=== PATIENT | female | born 1935 | race Caucasian/White ===

== ENCOUNTER 2021-12-31 19:30 | Emergency (ER) | payer MEDICARE, SELFPAY ==
[2021-12-31] VITALS (20 sets, daily range): BP systolic 178–225; BP diastolic 85–109; PULSE 69–77; RESP 16–44; O2SAT 88–98
--- NOTE | 2021-12-31 19:33 | ED_ITS ---
HPI - Neuro Symptoms/Deficit General Chief Complaint: Extremity Problem,Nontraumatic Stated Complaint: R leg pain/numbness Time Seen by Provider: 12/31/21 19:32 History of Present Illness HPI Narrative: 86-year-old female former smoker with history of atrial flutter, chronic CHF with EF 30%, prior GI pleed, prior stroke workup and hypertension presents by EMS for evaluation of severe right leg pain, numbness and tingling. SHe has a very unclear timeline, but states she probably noticed some symptoms this morning. She sat down in a chair at her computer at about 330p and noticed her symptoms at 1800. She states she had something similar few months ago and had a workup at an outside facility, we are attempting to obtain records. She has pain in her right posterior hip and many various areas of her leg. She states that she was largely in her baseline and had sat down at her computer for least an hour to an upon standing noticed the pain and tingling in her leg at 6:00 p.m.. She was hoping that going for a walk might workout a ?kink? and when her symptoms did not improve she called EMS. She denies any headache or blurred vision. She denies any difficulty with speech, dizziness or lightheadedness. She denies any upper extremity numbness, tingling or weakness. She denies any left leg numbness, tingling or weakness. She had a very similar presentation in the end of September at an outside facility in which case she was found to be hypertensive with right posterior hip pain, right leg numbness and tingling and negative imaging Related Data Previous Rx's Medication Instructions Recorded hydrocodone 5 mg-acetaminophen 325 1 tab PO Q4-6H PRN pain #10 tabs 01/01/22 mg tablet methylprednisolone 4 mg tablets in See Rx Instructions PO .COMPLEX 01/01/22 a dose pack (Medrol (Alex)) #21 ea Allergies Allergy/AdvReac Type Severity Reaction Status Date / Time carvedilol Allergy Verified 12/31/21 21:19 cephalexin Allergy Verified 12/31/21 21:19 doxycycline Allergy Verified 12/31/21 21:19 ibuprofen Allergy Verified 12/31/21 19:52 spironolactone Allergy Verified 12/31/21 21:19 Sulfa (Sulfonamide Allergy Verified 12/31/21 19:52 Antibiotics) Review of Systems Review of Systems Narrative: GENERAL: Denies chills, fatigue, malaise, fever, sweats. HEENT: Denies sinus pain, ear pain, sore throat, difficulty swallowing, dizziness. RESPIRATORY: Denies dyspnea, cough, wheezing, hemoptysis, sputum. CARDIOVASCULAR: Denies chest pain, palpitations, orthopnea, edema, GASTROINTESTINAL: Denies nausea, vomiting, abdominal pain, diarrhea, constipati on, melena. : Denies dysuria, frequency, incontinence, hematuria, urinary retention. MUSCULOSKELETAL: See HPI SKIN: Denies rash, skin lesions, or other NEUROLOGIC: See HPI PSYCHIATRIC: No concerning psychosocial issues. 12 point review of systems is negative except for those stated above Patient History Social History Smoking Status: Never smoker Exam Narrative Exam Narrative: GENERAL: [86] year old patient appears stated age. Well-developed patient, in mild distress. GCS 15 HEAD: Atraumatic. Normocephalic. EYES: Pupils equal round and reactive. Extraocular motions intact. No scleral icterus. No injection or drainage. ENT: Nose without bleeding, purulent drainage. Throat without erythema, tonsillar hypertrophy or exudate. Airway patent. NECK: Trachea midline. Non tender CARDIOVASCULAR: Regular rate and rhythm without murmurs, gallops, or rubs. RESPIRATORY: Clear to auscultation. Breath sounds equal bilaterally. No wheezes, rales, or rhonchi. GASTROINTESTINAL: Abdomen soft, non-tender, nondistended. EXTREMITIES: No edema or joint tenderness. BACK: Nontender without deformity or crepitance. No flank tenderness. NEURO: AOx3. Cranial nerves 2-12 grossly intact SKIN: No rash or erythema of visible areas Initial Vital Signs Initial Vital Signs: Vital Signs Pulse Rate 70 12/31/21 19:30 Respiratory Rate 16 12/31/21 19:30 Blood Pressure 223/109 H 12/31/21 19:30 Pulse Oximetry 97 12/31/21 19:30 Oxygen Delivery Method 12/31/21 19:30 Scores NIH Stroke Scale Level of Conciousness: Alert, keenly responsive Ask month/age: Answers both questions correctly. Open/close eyes, close hand: Performs both tasks correctly Best gaze horizontal: Normal Visual loyd: No visual loss Facial palsy: Normal symetrical movement Left arm drift: No drift for full 10 sec Right arm drift: No drift for full 10 sec Left leg drift: No drift for full 5 sec Right leg drift: No drift for full 5 sec Limb ataxia: Absent Sensory on face/arms/legs: Mild to moderate sensory loss, can tell touch Best language: No aphasia, normal Dysarthria: Normal Extinction or inattention: No abnormality Total NIH Stroke scale score: 1 Course Orders Ordered: ED Orders 12/31/21 19:33 CT Stroke Stat US periph venous low extrem rt Stat 12/31/21 19:34 CT angio head and neck Stat 12/31/21 19:48 BNP [NT-proBNP (BNP-Adult 18+)] Stat Complete Blood Count AUTO DIFF Stat Comprehensive Metabolic Panel Stat Procalcitonin Stat Prothrombin Time INR Stat Troponin & CK Cardiac Panel Stat 12/31/21 21:11 Urine Drug Screen, Rapid Stat 12/31/21 21:12 Urine Culture Stat Urine Microscopic Stat 12/31/21 21:25 Chest [XR chest 1V] Stat 12/31/21 21:30 EKG-12 Lead Stat Sodium Chloride (Normal Saline 0.9%) 1,000 mls @ 150 mls/hr IV CONT DREA Last Infusion: 01/01/22 00:33 Dose: 0 mls/hr Documented By: Admin: 12/31/21 20:53 Dose: 150 mls/hr Documented By: MICHAELA Discontinued Medications Hydrocodone Bitart/Acetaminophen (Hydrocodone/Acet 5/325 Tablet) 1 tab PO NOW ONE Stop: 12/31/21 21:45 Last Admin: 12/31/21 22:49 Dose: 1 tab Documented By: DESIRE Dexamethasone (Dexamethasone 10 Mg/Ml Vial) 6 mg IV NOW ONE Stop: 12/31/21 21:43 Last Admin: 12/31/21 22:49 Dose: 6 mg Documented By: DESIRE Furosemide (Furosemide 40 Mg/4 Ml Vial) 40 mg IV NOW ONE Stop: 12/31/21 21:09 Last Admin: 12/31/21 21:21 Dose: 40 mg Documented By: MICHAELA Ceftriaxone Sodium 1,000 mg/ (Sodium Chloride) 100 mls @ 200 mls/hr IV NOW ONE Stop: 12/31/21 21:10 Last Admin: 12/31/21 22:22 Dose: Not Given Documented By: MICHAELA Labetalol HCl (Labetalol 20 Mg/4 Ml Syringe) 10 mg IV NOW ONE Stop: 12/31/21 21:10 Last Admin: 12/31/21 21:23 Dose: 10 mg Documented By: MICHAELA Metoprolol Tartrate (Metoprolol Ir 25 Mg Tablet) 50 mg PO NOW ONE Stop: 12/31/21 21:09 Last Admin: 12/31/21 22:22 Dose: Not Given Documented By: MICHAELA Ondansetron HCl (Ondansetron 4 Mg/2 Ml Inj) 4 mg IV NOW ONE Stop: 12/31/21 21:07 Last Admin: 12/31/21 21:14 Dose: 4 mg Documented By: MICHAELA Pantoprazole Sodium (Pantoprazole 40 Mg Vial) 40 mg IV NOW ONE Stop: 12/31/21 21:07 Last Admin: 12/31/21 21:21 Dose: 40 mg Documented By: MICHAELA Reevaluation(s) Reevaluation #1: BP greatly improved after above stated therapies leg pain greatly improved, she does well with ambulation Consultations Consultation #1: discussed with Stroke. In agreement that not only is patient without symptoms that are likely to be stroke, but timeline is unclear and she is not TPA, nor CODE IR candidate Vital Signs Vital signs: Vital Signs - 8 hr 12/31/21 19:30 12/31/21 20:11 12/31/21 20:30 Pulse Rate 70 69 69 Respiratory Rate 16 17 22 Blood Pressure 223/109 H Pulse Oximetry 97 91 88 L Oxygen Delivery Method Room Air 12/31/21 20:35 12/31/21 20:35 12/31/21 21:03 Pulse Rate 69 Respiratory Rate 23 Blood Pressure 220/100 H Pulse Oximetry 92 95 Oxygen Delivery Method 12/31/21 21:04 12/31/21 21:04 12/31/21 21:24 Pulse Rate 77 72 Respiratory Rate 25 H Blood Pressure 207/94 H Pulse Oximetry 95 96 Oxygen Delivery Method 12/31/21 21:24 12/31/21 21:30 12/31/21 21:30 Pulse Rate 69 Respiratory Rate 19 Blood Pressure 217/98 H 211/99 H Pulse Oximetry 93 Oxygen Delivery Method 12/31/21 23:00 12/31/21 21:33 12/31/21 21:33 Pulse Rate 74 69 Respiratory Rate 24 Blood Pressure 185/89 H 197/85 H Pulse Oximetry 92 Oxygen Delivery Method 12/31/21 21:40 12/31/21 21:40 12/31/21 21:51 Pulse Rate 69 Respiratory Rate 16 Blood Pressure 193/86 H 225/96 H Pulse Oximetry 98 Oxygen Delivery Method 12/31/21 21:51 12/31/21 22:00 12/31/21 22:30 Pulse Rate 69 72 73 Respiratory Rate 35 H 23 27 H Blood Pressure Pulse Oximetry 96 96 Oxygen Delivery Method 12/31/21 22:50 12/31/21 22:50 12/31/21 23:00 Pulse Rate 71 Respiratory Rate 30 H Blood Pressure 193/88 H 185/89 H Pulse Oximetry 96 Oxygen Delivery Method 12/31/21 23:00 12/31/21 23:10 12/31/21 23:10 Pulse Rate 74 69 Respiratory Rate 26 H 21 Blood Pressure 184/87 H Pulse Oximetry 97 97 Oxygen Delivery Method 12/31/21 23:20 12/31/21 23:20 12/31/21 23:30 Pulse Rate 72 Respiratory Rate 34 H Blood Pressure 188/96 H 178/88 H Pulse Oximetry 96 Oxygen Delivery Method 12/31/21 23:30 12/31/21 23:40 12/31/21 23:40 Pulse Rate 70 73 Respiratory Rate 44 H 25 H Blood Pressure 190/96 H Pulse Oximetry 92 96 Oxygen Delivery Method 12/31/21 23:50 12/31/21 23:50 01/01/22 00:00 Pulse Rate 70 Respiratory Rate 24 Blood Pressure 191/95 H 183/86 H Pulse Oximetry 94 Oxygen Delivery Method 01/01/22 00:00 01/01/22 00:10 01/01/22 00:10 Pulse Rate 69 69 Respiratory Rate 24 24 Blood Pressure 185/91 H Pulse Oximetry 96 92 Oxygen Delivery Method 01/01/22 00:20 01/01/22 00:20 Pulse Rate 69 Respiratory Rate 21 Blood Pressure 183/87 H Pulse Oximetry 95 Oxygen Delivery Method MDM - Neuro Symptoms/Deficit Lab Data Result diagrams: 12/31/21 19:48 12/31/21 19:48 Labs: Lab Results 12/31/21 12/31/21 12/31/21 Range/Units 19:48 19:48 19:48 WBC 4.9 (4.5-11.0) X10^3/uL RBC 4.23 (4.0-5.2) X10^6/uL Hgb 13.5 (12.0-16.0) g/dL Hct 39.7 (36-46) % MCV 94.0 (80-100) fL MCH 31.9 (26-34) PG MCHC 33.9 (30-36) % RDW 14.2 (11.6-14.8) % Plt Count 159 (150-400) X10^3/uL Neut % (Auto) 74.2 (50-75) % Lymph % (Auto) 18.4 L (25-40) % [place] % (Auto) 6.0 (3-14) % Eos % (Auto) 1.0 L (2-4) % Baso % (Auto) 0.4 (0-2) % Neut # (Auto) 3600 (7220-5630) /uL Lymph # (Auto) 900 L (5926-0276) /uL [place] # (Auto) 300 (0-900) /uL Eos # (Auto) 100 (0-450) /uL Baso # (Auto) 0 (0-100) /uL PT 10.6 (10.1-12.7) SECONDS INR 1.0 (0.9-1.3) Sodium 142 (137-145) mmol/L Potassium 4.0 (3.4-5.1) mmol/L Chloride 109 H (98-107) mmol/L Carbon Dioxide 21 L (22-32) mmol/L BUN 33 H (7-17) mg/dL Creatinine 0.84 (0.52-1.04) mg/dL Estimated GFR > 60 (>60) mL/min BUN/Creatinine Ratio 39.3 H (6-22) Glucose 165 H (80-110) mg/dL Calcium 9.1 (8.4-10.2) mg/dL Total Bilirubin 0.5 (0.2-1.3) mg/dL AST 74 H (14-36) IU/L ALT 48 H (<35) IU/L Alkaline Phosphatase 91 (38-126) U/L Total Creatine Kinase 74 (30-135) U/L CK-MB (CK-2) TNP CK-MB (CK-2) Rel Index TNP Troponin I 0.013 (0.01-0.034) ng/mL NT-Pro-B Natriuret Pep (<450) pg/mL Total Protein 7.3 (6.3-8.2) g/dL Albumin 4.5 (3.5-5.0) g/dL Globulin 2.8 (1.7-4.1) g/dL Albumin/Globulin Ratio 1.6 (1.0-2.8) Procalcitonin (<0.5) ng/mL Urine RBC (0-5/HPF) Urine WBC (0-5/HPF) Urine Bacteria (None) Ur Culture Indicated? U Opiates 300ng/mL cut (Negative) Ur Oxycodone Screen (Negative) Urine Methadone Screen (Negative) Ur Barbiturates Screen (Negative) U Tricyclic Antidepress (Negative) Ur Phencyclidine Scrn (Negative) Ur Amphetamines Screen (Negative) U Methamphetamines Scrn (Negative) Ur MDMA Scrn (Ecstasy) (Negative) U Benzodiazepines Scrn (Negative) Urine Cocaine Screen (Negative) U Marijuana (THC) Screen (Negative) 12/31/21 12/31/21 12/31/21 Range/Units 19:48 21:11 21:12 WBC (4.5-11.0) X10^3/uL RBC (4.0-5.2) X10^6/uL Hgb (12.0-16.0) g/dL Hct (36-46) % MCV (80-100) fL MCH (26-34) PG MCHC (30-36) % RDW (11.6-14.8) % Plt Count (150-400) X10^3/uL Neut % (Auto) (50-75) % Lymph % (Auto) (25-40) % [place] % (Auto) (3-14) % Eos % (Auto) (2-4) % Baso % (Auto) (0-2) % Neut # (Auto) (4455-4003) /uL Lymph # (Auto) (0226-5477) /uL [place] # (Auto) (0-900) /uL Eos # (Auto) (0-450) /uL Baso # (Auto) (0-100) /uL PT (10.1-12.7) SECONDS INR (0.9-1.3) Sodium (137-145) mmol/L Potassium (3.4-5.1) mmol/L Chloride (98-107) mmol/L Carbon Dioxide (22-32) mmol/L BUN (7-17) mg/dL Creatinine (0.52-1.04) mg/dL Estimated GFR (>60) mL/min BUN/Creatinine Ratio (6-22) Glucose (80-110) mg/dL Calcium (8.4-10.2) mg/dL Total Bilirubin (0.2-1.3) mg/dL AST (14-36) IU/L ALT (<35) IU/L Alkaline Phosphatase (38-126) U/L Total Creatine Kinase (30-135) U/L CK-MB (CK-2) CK-MB (CK-2) Rel Index Troponin I (0.01-0.034) ng/mL NT-Pro-B Natriuret Pep 2540 H (<450) pg/mL Total Protein (6.3-8.2) g/dL Albumin (3.5-5.0) g/dL Globulin (1.7-4.1) g/dL Albumin/Globulin Ratio (1.0-2.8) Procalcitonin 0.06 (<0.5) ng/mL Urine RBC None seen (0-5/HPF) Urine WBC None seen (0-5/HPF) Urine Bacteria None seen (None) Ur Culture Indicated? Specimen cultured U Opiates 300ng/mL cut Negative (Negative) Ur Oxycodone Screen Negative (Negative) Urine Methadone Screen Negative (Negative) Ur Barbiturates Screen Negative (Negative) U Tricyclic Antidepress Negative (Negative) Ur Phencyclidine Scrn Negative (Negative) Ur Amphetamines Screen Negative (Negative) U Methamphetamines Scrn Negative (Negative) Ur MDMA Scrn (Ecstasy) Negative (Negative) U Benzodiazepines Scrn Negative (Negative) Urine Cocaine Screen Negative (Negative) U Marijuana (THC) Screen Negative (Negative) Point of Care Testing Glucose POC 146 Urine Dip Bedside Urine Glucose Negative Bedside Urine Bilirubin - Negative Bedside Urine Ketone +/- 5 Urine Specific [place] 1.025 Bedside Urine pH 5.5 Bedside Urine Protein ++ 100 Bedside Urine Urobilinogen +/- 1mg Bedside Urine Nitrite - Negative Bedside Urine Leukocytes +/- 15 Esterase MDM Narrative Medical decision making narrative: 86-year-old female presents with right low back pain with radiation into her leg with associated numbness and tingling with reassuring imaging in the absence of other neurologic symptoms. Multiple etiologies of back pain considered including; Epidural abscess, cauda equina, mass occupying lesion, and other considered, however she has no red flag findings suggestive of a neurosurgical emergency. She has significantly improved symptoms with above-stated therapies. Stroke was considered though thought to be highly unlikely given her history and physical. We had extensive discussion about the possibility though extremely unlikely of this being stroke, including my conversation with Neurology and sure the opinion that this is much more likely explained by an other diagnosis. She recently had an echo which was unremarkable. Patient given extensive return precautions and questions answered to her apparent satisfaction Discharge Plan Departure Patient Disposition: Home Clinical Impression: Acute lumbar radiculopathy, Hypertension Instructions: DI for Lumbar Radiculopathy Activity Restrictions/Additional Instructions: *You have been diagnosed with [acute right-sided lumbar radiculopathy.] *What to do: *Please continue to take your regular medications as directed. [ x] New medication prescriptions sent to your pharmacy: [[facility]] [ ] New medication written as a paper prescription [ ] No new medications given *Please follow up with your primary care provider in 2-3 days, call for an appointment. Let them know you were seen in the Emergency Department and that we ask that you be seen in follow up. We will electronically transmit a record of today's note if your PCP is in our system *If you do not have a primary care provider please contact the [facility] line at [phone]. They will ask some questions about your medical history and help get you set up with a doctor in the community. *Return to Emergency Department if you should have any new, worsening or concerning symptoms, such as [fever greater than 101 F, shaking chills, worsening pain, persistent vomiting or other bothersome symptoms] Prescriptions: New hydrocodone-acetaminophen 5-325 mg tablet 1 tab PO Q4-6H PRN (Reason: pain) Qty: 10 0RF methylprednisolone [Medrol (Alex)] 4 mg tablets,dose pack See Rx Instructions .ROUTE .COMPLEX Qty: 21 0RF Rx Instructions: orally per package directions Referrals: Devyn Lafleur DO [Physician] - Babar Mosher MD [Physician] -
--- NOTE | 2021-12-31 19:33 | DI.US.S_ITS ---
PROCEDURE: US PERIPH VENOUS LOW EXTREM RT INDICATIONS: PAIN TECHNIQUE: Real-time imaging, as well as color and pulse Doppler interrogation, were performed of the lower extremity deep veins from the inguinal ligament to the popliteal fossa. COMPARISON: None. FINDINGS: The common femoral, femoral and popliteal veins are normally compressible, and free of intraluminal thrombus. Color and pulse Doppler demonstrate normal phasic intraluminal flow. There is normal augmentation response to distal compression maneuver. IMPRESSION: 1. No evidence of deep venous thrombosis in the right lower extremity. Dictated by: Jluis Yates M.D. on 12/31/2021 at 21:25 Approved by: Jluis Yates M.D. on 12/31/2021 at 21:25
--- NOTE | 2021-12-31 19:33 | DI.CT.S_ITS ---
PROCEDURE: CT STROKE INDICATIONS: right leg numbness TECHNIQUE: Noncontrast 5 mm thick angled axial sections acquired from the foramen magnum to the vertex, with coronal reformats. For radiation dose reduction, the following was used: automated exposure control, adjustment of mA and/or kV according to patient size. COMPARISON: None. FINDINGS: Image quality: Excellent. CSF spaces: Basal cisterns are patent. 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 There is mild to moderate cerebral volume loss, with resultant ventricular and sulcal prominence. Brain: No intracranial hemorrhage, mass, or mass effect. There are subcortical, periventricular and deep white matter hypodensities consistent with mild to moderate chronic small vessel ischemic changes. The marie-white matter junction appears preserved. There is intracranial internal carotid artery atherosclerosis. Skull and face: Calvarium and visualized facial bones appear intact, without suspicious lesions. Sinuses: Visualized sinuses and mastoids are clear. IMPRESSION: 1. No intracranial hemorrhage or other imaging contraindications to tPA identified. Findings discussed with Dr. Morgan on 12/31/2021 at 8:04 p.m.. This study fulfills neurological imaging criteria for inclusion or exclusion of acute stroke therapies based on available published neurological guidelines. Dictated by: Jluis Yates M.D. on 12/31/2021 at 20:03 Approved by: Jluis Yates M.D. on 12/31/2021 at 20:06
--- NOTE | 2021-12-31 19:34 | DI.CT.S_ITS ---
PROCEDURE: CT ANGIO HEAD AND NECK INDICATIONS: right leg numbness TECHNIQUE: After the administration of intravenous contrast, 1 mm thick sections acquired from the aortic arch through the [place] of [place]. Post-contrast 4.5 mm thick sections then re-acquired from the foramen magnum to the vertex. 3-dimensional uduppzi-zoyzdotas-ccjkglektp (MIP) and/or volume rendering reformats were acquired of the central intracranial vasculature and neck separately. For radiation dose reduction, the following was used: automated exposure control, adjustment of mA and/or kV according to patient size. COMPARISON: [facility], CT, CT STROKE, 12/31/2021, 19:39. FINDINGS: Image quality: Excellent. BRAIN: CSF spaces: Basal cisterns are patent. There is a probable arachnoid cyst along the midline in the posterior fossa redemonstrated. There is mild to moderate cerebral volume loss, with resultant ventricular and sulcal prominence. Brain: No intracranial hematoma collections, mass, or mass effect. There are subcortical, periventricular and deep white matter hypodensities consistent with mild to moderate chronic small vessel ischemic changes. The marie-white matter junction appears preserved. No abnormal intracranial enhancement. Skull and face: Calvarium and facial bones appear intact, without suspicious lesions. Orbits appear normal. Sinuses: Sinuses and mastoids are clear. HEAD CT ANGIOGRAPHY: Anterior circulation: Intracranial internal carotid arteries are normal in size and appear patent bilaterally. There is mild atherosclerotic calcification along the cavernous segments of the internal carotid arteries. The paired anterior cerebral arteries appear patent bilaterally. The anterior communicating artery also appears patent. The middle cerebral arteries appear patent bilaterally. No high-grade stenosis, occlusion, or filling defects. No cerebral aneurysms identified. Posterior circulation: Visualized portions of the vertebral arteries demonstrate normal caliber, and join to form a patent basilar artery. There is moderate short segment narrowing within the basilar artery. The posterior cerebral arteries appears patent bilaterally. No high-grade stenosis, occlusion, or filling defects. No cerebral aneurysms identified. NECK CT ANGIOGRAPHY: Carotid system: The great vessels demonstrate a conventional anatomy as they arise from the aortic arch. The origins of the common carotid arteries appear patent. The common carotid arteries demonstrate normal caliber and courses. The bifurcation regions are both widely patent. There is mild atherosclerotic wall calcification within the carotid bulbs with minimal narrowing of less than 10%. The extracranial internal carotid arteries demonstrate tortuosity but appear patent. Posterior circulation: The origins of the vertebral arteries both appear patent. The more superior extracranial portions of both vertebral arteries demonstrate tortuous courses but appear patent bilaterally. They join to form a patent basilar artery. As noted above, there is moderate short segment narrowing within the basilar artery. Soft tissues: Visualized lungs demonstrate bilateral septal thickening with indistinct ground-glass opacities suggestive of pulmonary edema. Bones: There is extensive osteopenia. Straightening of the cervical lordosis is present with mild anterolisthesis at C2-C3. Mild retrolisthesis present at C3-C4. There is multilevel degenerative disc disease and facet arthropathy throughout the cervical spine. Visualized cervical spine appears normally aligned. IMPRESSION: 1. No high-grade stenosis or occlusion of the central intracranial arteries. 2. No high-grade stenosis or occlusion of the head and neck arteries. 3. There is a short segment of moderate narrowing in the basilar artery. 4. Septal thickening and indistinct ground-glass opacity within the visualized lungs suggestive of pulmonary edema. Any quantitative measurements of stenosis were performed using NASCET criteria. Dictated by: Jluis Yates M.D. on 12/31/2021 at 20:09 Approved by: Jluis Yates M.D. on 12/31/2021 at 20:18
[2021-12-31 20:16] LABS: Add Manual Diff / Slide Review NO; Basophils Absolute Auto 0 /uL (0-100); Basophils Percent Auto 0.4 % (0-2); Eosinophils Absolute Auto 100 /uL (0-450); Hematocrit 39.7 % (36-46); Hemoglobin 13.5 g/dL (12.0-16.0); Lymphocytes Absolute Auto 900 /uL (1100-4500); Lymphocytes Percent Auto 18.4 % (25-40); Mean Corpuscular HGB Conc 33.9 % (30-36); Mean Corpuscular Hemoglobin 31.9 PG (26-34); Monocytes Absolute Auto 300 /uL (0-900); Neutrophils Absolute Auto 3600 /uL (1500-7000); Neutrophils Percent Auto 74.2 % (50-75); Platelet Count 159 X10^3/uL (150-400); Red Blood Cell Count 4.23 X10^6/uL (4.0-5.2); Red Cell Distribution Width 14.2 % (11.6-14.8); White Blood Cell Count 4.9 X10^3/uL (4.5-11.0)
[2021-12-31 20:31] LABS: Prothrombin Time 10.6 SECONDS (10.1-12.7)
[2021-12-31 20:34] LABS: Alanine Aminotransferase 48 IU/L (<35); Albumin 4.5 g/dL (3.5-5.0); Albumin Globulin Ratio 1.6 (1.0-2.8); Alkaline Phosphatase 91 U/L (38-126); Aspartate Aminotransferase 74 IU/L (14-36); BUN Creatinine Ratio 39.3 (6-22); Bilirubin Total 0.5 mg/dL (0.2-1.3); Blood Urea Nitrogen 33 mg/dL (7-17); Calcium 9.1 mg/dL (8.4-10.2); Carbon Dioxide 21 mmol/L (22-32); Chloride 109 mmol/L (98-107); Creatine Kinase 74 U/L (30-135); Estimated Glomerular Filt Rate > 60 mL/min (>60); Globulin 2.8 g/dL (1.7-4.1); Glucose 165 mg/dL (80-110); HEMOLYSIS < 15 (0-50); Sodium 142 mmol/L (137-145); Total Protein 7.3 g/dL (6.3-8.2)
--- NOTE | 2021-12-31 20:35 | PC.NURSE ---
Pt desat to 88% on RA. Placed on 1 L oxygen, oxygen saturation now 93% on 2 L.
[2021-12-31 20:46] LABS: Troponin I 0.013 ng/mL (0.01-0.034)
[2021-12-31] MEDS: SODIUM CHLORIDE 0.9% 1,000 ML 150 ML IV (20:53)
--- NOTE | 2021-12-31 21:00 | PC.NURSE ---
Addendum entered by Pravin Phillips R.N. 12/31/21 23:54: 2100: Pt reports numbness to right leg that began around 1800 this evening after sitting in a chair for a while. Pt does not feel touch to right foot. Cap refill of less than 2 seconds in right foot. Pt reports pain that begins in her right bottom and travels down to her lower leg with the numbness beginning just below her knee. Original Note: Pt repo
[2021-12-31] MEDS: ONDANSETRON 4 MG/2 ML INJ IV (21:14)
[2021-12-31] MEDS: PANTOPRAZOLE 40 MG VIAL IV (21:21)
[2021-12-31] MEDS: FUROSEMIDE 40 MG/4 ML VIAL IV (21:21)
[2021-12-31] MEDS: LABETALOL 20 MG/4 ML SYRINGE 10 MG IV (21:23)
--- NOTE | 2021-12-31 21:25 | DI.RAD.S_ITS ---
PROCEDURE: XR CHEST 1V INDICATIONS: stroke / hypoxemia TECHNIQUE: One view of the chest was acquired. COMPARISON: None. FINDINGS: Surgical changes and devices: None. Lungs and pleura: There are reticular interstitial opacities with a basilar predominance demonstrated. No focal consolidation. No pleural effusions or pneumothorax. Mediastinum: Mediastinal contours appear normal. Heart size is enlarged. Bones and chest wall: No suspicious bony lesions. Overlying soft tissues appear unremarkable. IMPRESSION: 1. Reticular interstitial opacities likely represent interstitial pulmonary edema. The differential includes chronic interstitial changes. Dictated by: Jluis Yates M.D. on 12/31/2021 at 22:15 Approved by: Jluis Yates M.D. on 12/31/2021 at 22:17
[2021-12-31 21:26] LABS: Ur Creatinine 20 (Normal); Ur Specific Gravity 1.025 (Normal); Urine pH 5 (Normal)
[2021-12-31 21:27] LABS: UR Morphine/Opiate cutoff 300 Negative (Negative); Urine Amphetamines Negative (Negative); Urine Barbiturates Negative (Negative); Urine Benzodiazepines Negative (Negative); Urine Cocaine Negative (Negative); Urine MDMA Negative (Negative); Urine Methadone Negative (Negative); Urine Methamphetamines Negative (Negative); Urine Oxycodone Negative (Negative); Urine Phencyclidine Negative (Negative); Urine Tetrahydrocannabinol Negative (Negative); Urine Tricyclic Antidepressant Negative (Negative)
[2021-12-31 21:31] LABS: Bacteria Urine None Seen; Culture Indicated Urine Specimen Cultured; RBC Urine None Seen (0-5/HPF); WBC Urine None Seen (0-5/HPF)
[2021-12-31 21:39] LABS: NT-proBNP (BNP-Adult 18+) 2540 pg/mL (<450)
[2021-12-31 21:47] LABS: Procalcitonin 0.06 ng/mL (<0.5)
[2021-12-31] MEDS: DEXAMETHASONE 10 MG/ML VIAL 6 MG IV (22:49)
[2021-12-31] MEDS: HYDROCODONE/ACET 5/325 TABLET 1 TAB PO (22:49)
[2022-01-01] VITALS: BP 183/86; PULSE 69; RESP 24; O2SAT 96
--- NOTE | 2022-01-01 00:01 | PC.NURSE ---
21:35: Siobhan valdez. Contacted IT and Pharm. Pt pain medications delayed due to this issue. Provider aware.
[2022-01-01 00:10] VITALS: BP 185/91; PULSE 69; RESP 24; O2SAT 92
[2022-01-01 00:20] VITALS: BP 183/87; PULSE 69; RESP 21; O2SAT 95
[2022-01-01 00:40] VITALS: PULSE 72; RESP 20; O2SAT 95
== END 2022-01-01 01:12 | disposition home or self-care (01) ==
PROVIDERS: Emergency Provider Emergency Medicine
DX: M54.16 Radiculopathy, lumbar region (principal); I10 Essential (primary) hypertension
CPT/HCPCS: 36415; 70450; 70496; 70498; 71045; 80053; 80305; 81003; 81015; 82550; 82962; 83880; 84145; 84484; 85025; 85610; 87086; 93005; 93971; 96361; 96374; 96375; 99284; C9113; J0696; J1100; J1940; J2405; Q9967